=== PATIENT | female | born 1970 | race Caucasian/White ===

== ENCOUNTER 2021-11-03 15:00 | Outpatient (CLI) | payer OTHER ==
--- NOTE | 2021-11-05 12:07 | Mammography Report ---
BILATERAL DIGITAL SCREENING MAMMOGRAM 3D/2D: 11/03/2021 CLINICAL: Routine screening. Comparison is made to exams dated: 03/19/2015 mammogram, 02/26/2014 mammogram, 02/23/2013 mammogram, an d 12/08/2011 mammogram - [facility]. The tissue of both breasts is heterogeneously d ense. This may lower the sensitivity of mammography. No significant masses, calcifications, or other findings are seen in either breast. There has been no significant interval change. IMPRESSION: NEGATIVE There is no mammographic evidence of malignancy. A 1 year screening mammogram is recommended. This exam was interpreted at Station ID: [id number]. NOTE: For mammograms, a report in lay terms will be sent to the patient. Approximately 15% of breast malignancies will not be visualized mammographically. In the management of a palpable breast mass, a negative mammogram must not discourage biopsy of a clinically suspicious lesion. Electronically Signed By: aMnuel yang/penrad:11/04/2021 08:00:46 ACR BI-RADS Category 1: Negative 3341F PARENCHYMAL PATTERN: (D) - The breast(s) demonstrate(s) heterogeneously dense fibroglandular marimar elizondo. BI-RADS CATEGORY: (1) - 1 RECOMMENDATION: (ANNUAL) - Recommend routine annual screening mammography. [id number] 1 year screening LATERALITY: (B)
== END 2021-11-03 15:01 | disposition home or self-care (01) ==
LOC: DI.N 15:00
DX: Z12.31 Encounter for screening mammogram for malignant neoplasm of breast (principal)

== ENCOUNTER 2022-05-25 09:11 | Day surgery (SDC) | payer OTHER ==
[2022-05-25 09:42] LABS: BILIRUBIN,URINE NEGATIVE (NEGATIVE); GLUCOSE, URINE (UA) NEGATIVE (NEGATIVE); KETONES,URINE (UA) NEGATIVE (NEGATIVE); LEUKOCYTE ESTERASE, URINE NEGATIVE (NEGATIVE); NITRITE,URINE NEGATIVE (NEGATIVE); OCCULT BLOOD,URINE MODERATE (NEGATIVE); PROTEIN,URINE NEGATIVE (NEGATIVE); UROBILINOGEN,URINE 0.2 (NORMAL) E.U./dL (NORMAL)
[2022-05-25 09:51] LABS: BASOPHILS % (AUTO) 0.2 %; HCT - HEMATOCRIT 44.2 % (37.0-47.0); LYMPHOCYTES # (AUTO) 0.9 10^3/uL (1.5-3.5); LYMPHOCYTES % (AUTO) 4.6 %; MEAN CORPUSCULAR HEMOGLOBIN 25.3 pg (27.0-31.0); MEAN CORPUSCULAR HGB CONC 31.7 g/dL (32.0-36.0); MEAN CORPUSCULAR VOLUME 79.9 fL (81.0-99.0); MEAN PLATELET VOLUME 9.9 fL (7.9-10.8); MONOCYTES # (AUTO) 0.6 10^3/uL (0.0-1.0); NEUTROPHILS # (AUTO) 18.4 10^3/uL (1.5-6.6); NEUTROPHILS % (AUTO) 91.8 %; PLT - PLATELET COUNT 350 10^3/uL (130-450); RED BLOOD COUNT 5.53 10^6/uL (4.20-5.40); RED CELL DISTRIBUTION WIDTH 13.7 % (12.0-15.0)
[2022-05-25 09:55] LABS: CLARITY,URINE CLOUDY (CLEAR); HCG UR QUAL NEGATIVE
[2022-05-25 09:57] LABS: ALBUMIN 4.6 g/dL (3.2-5.5); ALBUMIN/GLOBULIN RATIO 1.3 (1.0-2.2); BILIRUBIN,TOTAL 0.5 mg/dL (0.2-1.0); CALCIUM 9.7 mg/dL (8.5-10.3); CREATININE 0.8 mg/dL (0.4-1.0); POTASSIUM 3.6 mmol/L (3.5-5.0); TOTAL PROTEIN 8.2 g/dL (6.7-8.2)
[2022-05-25 09:58] LABS: BACTERIA,URINE Few /HPF (None Seen); RBC,URINE 0-5 /HPF (0-5); SQUAMOUS EPITHELIAL CELL,UR FEW Squamous (<= Few); WBC,URINE 0-3 /HPF (0-5)
[2022-05-25] MEDS ORDERED: ONDANSETRON 4 MG/2 ML VIAL IVP STA (11:29)
[2022-05-25] MEDS ORDERED: fentaNYL 100 MCG/2 ML VIAL IVP PRN ×2 (11:29→17:50)
[2022-05-25] MEDS ORDERED: PANTOPRAZOLE 40 MG VIAL IVP STA (11:30)
[2022-05-25 11:32] LABS: MUDS CUTOFF CONCENTRATIONS CUTOFF CONC BELOW:
[2022-05-25 11:43] LABS: AMPHETAMINE SCREEN,URINE NEGATIVE (NEGATIVE); BARBITURATE SCREEN,UR NEGATIVE (NEGATIVE); BENZODIAZEPINES SCREEN, URINE NEGATIVE (NEGATIVE); COCAINE SCREEN URINE NEGATIVE (NEGATIVE); METHADONE SCREEN, URINE NEGATIVE (NEGATIVE); METHAMPHETAMINES SCREEN, URINE NEGATIVE (NEGATIVE); OPIATE SCREEN, URINE NEGATIVE (NEGATIVE); OXYCODONE SCREEN, URINE NEGATIVE (NEGATIVE); PROPOXYPHENE SCREEN, URINE NEGATIVE (NEGATIVE); THC CANNABINOID SCREEN, URINE NEGATIVE (NEGATIVE); TRICYCLIC ANTIDEPRESSANT,URINE NEGATIVE (NEGATIVE)
[2022-05-25] MEDS ORDERED: PIPERACILLIN/TAZOBACTAM 4.5 GM in SODIUM CHLORIDE 0.9% MINIBAG 100 ML IV STA (14:20)
--- NOTE | 2022-05-25 14:21 | CT Report ---
PROCEDURE: Abdomen/Pelvis W INDICATIONS: abd pain CONTRAST: IV CONTRAST: Optiray 320 ml: 100 PO CONTRAST: *NO PO CONTRAST TECHNIQUE: After the administration of IV contrast, 5 mm thick sections acquired from the diaphragms to the symp hysis. 5 mm thick coronal and sagittal reformats were acquired. For radiation dose reduction, the f ollowing was used: automated exposure control, adjustment of mA and/or kV according to patient size. COMPARISON: None. FINDINGS: Image quality: Excellent. ABDOMEN: Lung bases: Lung bases are clear. Heart size is normal. Solid organs: Liver and spleen are normal in size and enhancement. Gallbladder is normal without wa ll thickening or calcification. Biliary system is non dilated. Pancreas enhances normally. No adre nal nodules. Kidneys demonstrate normal size and enhancement, without hydronephrosis. Peritoneum and bowel: The appendix is medially located along the right pelvic sidewall. It is fluid- filled, distended at 1.0 cm, and demonstrates mild wall hyperemia. There are mild inflammatory change s in the region of the appendiceal origin. Bowel loops otherwise demonstrate normal wall thickness an d caliber. No free fluid or air. Nodes and vessels: No retroperitoneal or mesenteric adenopathy by size criteria. Aorta and inferior vena cava are normal in size. Miscellaneous: No ventral hernias. PELVIS: Genitourinary: Bladder wall thickness is normal. There is an IUD in the uterus. Uterus and ovaries d emonstrate normal morphology. Miscellaneous: No inguinal hernias or adenopathy. Bones: No suspicious bony lesions. No vertebral body compression fractures. IMPRESSION: 1. Findings suggestive of early acute appendicitis. No evidence of abscess or rupture. 2. Findings discussed with Dr. Lucia in the emergency room at 1417 hours. Reviewed by: Anyi Meyer MD on 05/25/2022 2:20 PM PDT Approved by: Anyi Meyer MD on 05/25/2022 2:20 PM PDT Station ID: [id number]
--- NOTE | 2022-05-25 15:17 | ED Physician Documentation ---
History of Present Illness - Stated complaint Stated Complaint: ABD PX/VOMITING - Chief complaint Chief Complaint: Abd Pain - Additonal information Additional information: Patient is 51-year-old female presenting to the emergency department with abdominal pain with associated nausea and vomiting. Reports epigastric, right upper and right lower quadrant abdominal pain that began yesterday. Multiple episodes of nonbloody nonbilious vomiting associated with this event. Denies previous episodes of pain in the past. Denies history GERD, peptic ulcer disease, alcohol abuse, excessive NSAID use. Past surgical history positive for 1 section. Denies fever, chills, chest pain, shortness of breath, recent travel, new rash, new weakness/numbness/tingling in any extremity. Review of Systems Ten Systems: 10 systems reviewed and negative Constitutional: denies: Fever Cardiac: denies: Chest pain / pressure Respiratory: denies: Dyspnea GI: reports: Abdominal Pain, Nausea, Vomiting. denies: Diarrhea PD PAST MEDICAL HISTORY - Allergies Allergies/Adverse Reactions: Allergies Allergy/AdvReac Type Severity Reaction Status Date / Time No Known Drug Allergies Allergy Verified 05/25/22 09:19 PD ED PE NORMAL - Vitals Vital signs reviewed: Yes - General General: Alert and oriented X 3, No acute distress - HEENT HEENT: Atraumatic, PERRL, EOMI, Ears normal - Neck Neck: Supple, no meningeal sign, No bony TTP, No adenopathy - Cardiac Cardiac: RRR, No gallop - Respiratory Respiratory: No respiratory distress - Abdomen Abdomen: Other (Periumbilical and epigastric abdominal pain. No guarding, rebound or rigidity.) Results - Vitals Vitals: Vital Signs - 24 hr 05/25/22 05/25/22 05/25/22 09:16 11:37 13:00 Temperature 36.5 C Heart Rate 74 61 66 Respiratory 22 16 12 Rate Blood Pressure 163/67 H 128/66 O2 Saturation 99 100 100 05/25/22 15:00 Temperature Heart Rate 70 Respiratory 14 Rate Blood Pressure 131/63 H O2 Saturation 100 Oxygen O2 Source Room air - Labs Labs: Laboratory Tests 05/25/22 05/25/22 05/25/22 09:26 09:26 09:35 WBC 20.0 H RBC 5.53 H Hgb 14.0 Hct 44.2 MCV 79.9 L MCH 25.3 L MCHC 31.7 L RDW 13.7 Plt Count 350 MPV 9.9 Neut # (Auto) 18.4 H Lymph # (Auto) 0.9 L Williams # (Auto) 0.6 Eos # (Auto) 0.0 Baso # (Auto) 0.0 Absolute Nucleated RBC 0.00 Nucleated RBC % 0.0 Sodium Potassium Chloride Carbon Dioxide Anion Gap BUN Creatinine Estimated GFR (MDRD) Glucose Calcium Total Bilirubin AST ALT Alkaline Phosphatase Total Protein Albumin Globulin Albumin/Globulin Ratio Lipase Urine Color YELLOW Urine Clarity CLOUDY Urine pH 6.0 Ur Specific G[place] 1.020 Urine Protein NEGATIVE Urine Glucose (UA) NEGATIVE Urine Ketones NEGATIVE Urine Occult Blood MODERATE H Urine Nitrite NEGATIVE Urine Bilirubin NEGATIVE Urine Urobilinogen 0.2 (NORMAL) Ur Leukocyte Esterase NEGATIVE Urine RBC 0-5 Urine WBC 0-3 Ur Squamous Epith Cells FEW Squamous Urine Bacteria Few Ur Microscopic Review INDICATED Urine Culture Comments NOT INDICATED Urine HCG, Qual NEGATIVE Urine Opiates Screen NEGATIVE Ur Oxycodone Screen NEGATIVE Urine Methadone Screen NEGATIVE Ur Propoxyphene Screen NEGATIVE Ur Barbiturates Screen NEGATIVE Ur Tricyclics Screen NEGATIVE Ur Phencyclidine Scrn NEGATIVE Ur Amphetamine Screen NEGATIVE U Methamphetamines Scrn NEGATIVE U Benzodiazepines Scrn NEGATIVE Urine Cocaine Screen NEGATIVE U Cannabinoids Screen NEGATIVE 05/25/22 09:35 WBC RBC Hgb Hct MCV MCH MCHC RDW Plt Count MPV Neut # (Auto) Lymph # (Auto) Williams # (Auto) Eos # (Auto) Baso # (Auto) Absolute Nucleated RBC Nucleated RBC % Sodium 136 Potassium 3.6 Chloride 100 L Carbon Dioxide 25 Anion Gap 11.0 BUN 17 Creatinine 0.8 Estimated GFR (MDRD) 76 L Glucose 148 H Calcium 9.7 Total Bilirubin 0.5 AST 31 ALT 46 Alkaline Phosphatase 95 Total Protein 8.2 Albumin 4.6 Globulin 3.6 Albumin/Globulin Ratio 1.3 Lipase 27 Urine Color Urine Clarity Urine pH Ur Specific Gerton Urine Protein Urine Glucose (UA) Urine Ketones Urine Occult Blood Urine Nitrite Urine Bilirubin Urine Urobilinogen Ur Leukocyte Esterase Urine RBC Urine WBC Ur Squamous Epith Cells Urine Bacteria Ur Microscopic Review Urine Culture Comments Urine HCG, Qual Urine Opiates Screen Ur Oxycodone Screen Urine Methadone Screen Ur Propoxyphene Screen Ur Barbiturates Screen Ur Tricyclics Screen Ur Phencyclidine Scrn Ur Amphetamine Screen U Methamphetamines Scrn U Benzodiazepines Scrn Urine Cocaine Screen U Cannabinoids Screen PD MEDICAL DECISION MAKING - ED course Complexity details: reviewed results, d/w patient, d/w real estate listing consultant ED course: Patient 51-year-old female presenting with 1 day history abdominal pain with associated nausea and vomiting. Afebrile, hemodynamic stable on arrival to the emergency department. Some periumbilical and epigastric abdominal pain. Labs obtained demonstrate significant leukocytosis. CT of the abdomen pelvis positive for acute appendicitis. Zosyn ordered. Additionally patient given fentanyl and Zofran for symptomatic management. Last p.o. intake was last night. Patient made n.p.o. in the emergency department. Discussed with the surgical service who graciously agreed to accept the patient. At this time she is awaiting transfer to same-day surgery. - Consults Consults: Consulted (name) (Dr. Kayden Santizo) Departure - Departure Disposition: ED Transfer to [facility] Clinical Impression: Appendicitis
[2022-05-25] MEDS ORDERED: ONDANSETRON 4 MG/2 ML VIAL IVP PRN ×2 (17:50→19:49)
[2022-05-25] MEDS ORDERED: ATROPINE ABBOJECT 1 MG/10 ML SYRINGE IVP PRN (17:50)
[2022-05-25] MEDS ORDERED: MORPHINE 2 MG/ML CARPUJECT IVP PRN (17:50)
[2022-05-25] MEDS ORDERED: HYDROmorphone 0.5 MG/0.5 ML SYRINGE IVP PRN ×2 (17:50→19:49)
[2022-05-25] MEDS ORDERED: ePHEDrine 50 MG/ML VIAL IVP PRN (17:50)
[2022-05-25] MEDS ORDERED: NALOXONE 0.4 MG/ML VIAL IVP PRN (17:50)
[2022-05-25] MEDS ORDERED: METOCLOPRAMIDE 10 MG/2 ML VIAL IVP PRN (17:50)
--- NOTE | 2022-05-25 17:50 | ANESTHESIA ---
Pre-Anesthesia VS, & Labs - Diagnosis acute appendicitis - Procedure lap appy Vital Signs: Temp Pulse Resp BP Pulse Ox O2 Flow Rate 36.5 C 70 13 126/67 100 05/25/22 09:16 05/25/22 17:00 05/25/22 17:00 05/25/22 17:00 05/25/22 17:00 Height: 5 ft 1 in Weight (kg): 58.513 kg Body Mass Index: 24.3 BMI Classification: Normal - NPO >8 hours - Is Patient ?: No - Lab Results Current Lab Results: Laboratory Tests 05/25/22 09:35: Sodium 136, Potassium 3.6, Chloride 100 L, Carbon Dioxide 25, Anion Gap 11.0, BUN 17, Creatinine 0.8, Estimated GFR (MDRD) 76 L, Glucose 148 H , Calcium 9.7, Total Bilirubin 0.5, AST 31, ALT 46, Alkaline Phosphatase 95, Total Protein 8.2, Albumin 4.6, Globulin 3.6, Albumin/Globulin Ratio 1.3, Lipase 27 05/25/22 09:35: WBC 20.0 H, RBC 5.53 H, Hgb 14.0, Hct 44.2, MCV 79.9 L, MCH 25.3 L, MCHC 31.7 L, RDW 13.7, Plt Count 350, MPV 9.9, Neut # (Auto) 18.4 H, Lymph # (Auto) 0.9 L, [place] # (Auto) 0.6, Eos # (Auto) 0.0, Baso # (Auto) 0.0, Absolute Nucleated RBC 0.00, Nucleated RBC % 0.0 05/25/22 09:26: Urine Opiates Screen NEGATIVE, Ur Oxycodone Screen NEGATIVE, Urine Methadone Screen NEGATIVE, Ur Propoxyphene Screen NEGATIVE, Ur Barbiturates Screen NEGATIVE, Ur Tricyclics Screen NEGATIVE, Ur Phencyclidine Scrn NEGATIVE, Ur Amphetamine Screen NEGATIVE, U Methamphetamines Scrn NEGATIVE, U Benzodiazepines Scrn NEGATIVE, Urine Cocaine Screen NEGATIVE, U Cannabinoids Screen NEGATIVE Fish Bones: 05/25/22 09:35 05/25/22 09:35 Home Medications and Allergies Active Medications Fentanyl (Fentanyl 100 Mcg/2 Ml Vial) 25 mcg IVP PRN PRN PRN Reason: PAIN Last Admin: 05/25/22 11:58 Dose: 25 mcg Allergies/Adverse Reactions: Allergies Allergy/AdvReac Type Severity Reaction Status Date / Time No Known Drug Allergies Allergy Verified 05/25/22 09:19 Anes History & Medical History - Anesthetic History Anesthesia Complications: reports: No previous complications Family history of Anesthesia Complications: Denies Family history of Malignant Hyperthermia: Denies - Medical History Cardiovascular: reports: Hypertension Pulmonary: reports: None Gastrointestinal: reports: None Urinary: reports: None Neuro: reports: None Musculoskeletal: reports: None Endocrine/Autoimmune: reports: HyPOthyroidism Blood Disorders: reports: None Skin: reports: None Psychosocial: reports: No issues indicated History of Cancer?: No Exam General: Alert, Oriented x3, Cooperative Dental: WNL Mouth Openin Fingerbreadth Neck Mobility: Normal Mallampati classification: II Thyromental Distance: 4-6 cm Respiratory: Lungs clear Cardiovascular: Regular rate Plan Anesthesia Type: General Consent for Procedure(s) Verified and Reviewed: Yes Code Status: Attempt Resuscitation ASA classification: 2-Mild systemic disease Is this case an emergency?: Yes
--- NOTE | 2022-05-25 17:56 | HISTORY & PHYSICAL EXAMINATION ---
Chief Complaint - Chief Complaint Chief Complaint: abdominal pain History of Present Illness - Admitted From Admitted From:: ed - History Obtained From Records Reviewed: yes History obtained from: pt Exam Limitations: none - History of Present Illness HPI Comment/Other: acute onset abdominal pain last night. getting worse and not feeling well work up in ED appendicitis. History - Past Medical History Cardiovascular: reports: Hypertension Respiratory: reports: None Neuro: reports: None Endocrine/Autoimmune: reports: HyPOthyroidism GI: reports: None : reports: None Musculoskeletal: reports: None Derm: reports: None Meds/Allgy - Allergies Allergies/Adverse Reactions: Allergies Allergy/AdvReac Type Severity Reaction Status Date / Time No Known Drug Allergies Allergy Verified 05/25/22 09:19 Review of Systems - Constitutional Constitutional: reports: Malaise, Poor appetite - Other Findings Other Findings: 10 pt ros as above otherwise unremarkable Exam - Vital Signs Vital Signs: Vital Signs x48h Pulse Resp BP Pulse Ox 05/25/22 17:00 70 13 126/67 100 05/25/22 15:00 70 14 131/63 H 100 05/25/22 13:00 66 12 128/66 100 05/25/22 11:37 61 16 100 - Physical Exam General Appearance: positive: Alert, Mild distress Eyes Bilateral: positive: PERRL, EOMI, No scleral icterus ENT: positive: No signs of dehydration Neck: positive: No JVD, Trachea midline Respiratory: positive: No respiratory distress, Breath sounds nml Cardiovascular: positive: Regular rate & rhythm Abdomen: positive: No distention, Other (right lower quadrant tenderness present) Neurologic/Psychiatric: positive: Oriented x3 Conclusion/Plan - Problem List (1) Appendicitis Conclusion/Plan: plan laparoscopic appendectomy. parq held and consent obtained - Lab Results Fish Bones: 05/25/22 09:35 05/25/22 09:35 - Diagnostic Imaging Results Diagnostic Imaging Results: positive: Read independently
[2022-05-25] MEDS ORDERED: LACTATED RINGERS 1,000 ML IV SCH (18:00)
[2022-05-25] MEDS ORDERED: PROPOFOL 200 MG/20 ML VIAL IVP ONE ×2 (18:22→19:55)
[2022-05-25] MEDS ORDERED: ONDANSETRON 4 MG/2 ML VIAL ONE (18:22)
[2022-05-25] MEDS ORDERED: DEXAMETHASONE 4 MG/ML VIAL ONE (18:22)
[2022-05-25] MEDS ORDERED: LIDOCAINE-MPF 2% 5 ML VIAL ONE (18:22)
[2022-05-25] MEDS ORDERED: fentaNYL 100 MCG/2 ML VIAL ONE ×2 (18:22→19:21)
[2022-05-25] MEDS ORDERED: KETOROLAC 30 MG/ML VIAL ONE (18:22)
[2022-05-25] MEDS ORDERED: MIDAZOLAM 2 MG/2 ML VIAL ONE (18:22)
[2022-05-25] MEDS ORDERED: ROCURONIUM 50 MG/5 ML VIAL ONE (18:22)
[2022-05-25] MEDS ORDERED: SUGAMMADEX 200 MG/2 ML VIAL IVP ONE (18:22)
[2022-05-25] MEDS ORDERED: BUPIVACAINE 0.25% PF 30 ML VIAL SUBQ ONE ×2 (18:51)
[2022-05-25] MEDS ORDERED: BUPIVACAINE 0.25% PF 10 ML VIAL ONE ×2 (18:53→18:59)
[2022-05-25] MEDS ORDERED: LIDOCAINE MPF 2%-EPI 1:200000 20 ML VIAL ONE (18:53)
[2022-05-25] MEDS ORDERED: BUPIVACAINE 0.5% PF 30 ML VIAL ONE (18:59)
[2022-05-25] MEDS ORDERED: LACTATED RINGERS 1,000 ML IV ONE (19:49)
--- NOTE | 2022-05-25 19:59 | OPERATIVE REPORT ---
Operative Report - General Procedure Date: 05/25/22 Planned Procedure: laparoscopic appendectomy Pre-Op Diagnosis: appendicitis Procedure Performed: lap appy Post Op Diagnosis: appendicitis - Procedure Note Primary Surgeon: sourav casey Anesthesia Technique: General ET tube, Local Pathology: appendix Estimated Blood Loss (mL): 10 Drain/Tube Type: Other (none) Indications: appendicitis Findings: suppurative Complications: none - Other Other Information/Narrative: The patient was properly identified brought to the operating room and placed in supine position. The patient was previously given antibiotics. Sequential compression devices were placed. General endotracheal anesthesia was induced. The patient was prepped and draped in a sterile fashion. Local anesthetic was given to incision areas. An infraumbilical incision was made in and proceeded down to the fascia. The fascia was incised lifted upwards and abdomen entered with a Veress needle. CO2 was insufflated to a pressure of 15. A 12 mm trocar was placed with 30 degree scope. There was no evidence of injury from Veress needle or trocar placement. Under direct vision a 5 mm trocar was placed suprapubic and a 5 mm trocar was placed in the right upper quadrant. Appendix was identified and retracted anteriorly. Peritoneal attachments were taken down with careful use of cautery. Appendix was mobilized more anterior. A plane was then created between the mesoappendix and the appendix at the cecum. Appendix was divided with an Endo CLEMENTE intestinal load to include up a small portion of the cecum. The mesoappendix was then divided with an Endo CLEMENTE vascular load. There was secure closure at the cecum and hemostasis was assured after an additional clip was placed at the staple line. The appendix was brought out. The abdomen was thoroughly irrigated and hemostasis again assured. Trochars were removed under direct vision. Fascia at the infraumbilical site was closed with a running 0 Vicryl suture. Subcutaneous tissue was irrigated and skin reapproximated with buried interrupted 4-0 Monocryl. Dressings were applied. The patient tolerated the procedure well was awakened and brought to recovery in good condition.
--- NOTE | 2022-05-25 20:20 | ANESTHESIA POST OP EVALUATION ---
Anesthesia Post Eval - Post Anesthesia Eval Vitals: Last Vital Signs Temp 37.9 C 05/25/22 20:10 Pulse 68 05/25/22 20:10 Resp 22 05/25/22 20:10 BP 122/61 05/25/22 20:10 Pulse Ox 100 05/25/22 20:10 O2 Flow Rate CV Function Including HR & BP: Stable Pain Control: Satisfactory Nausea & Vomiting: Negative Mental Status: Baseline Respiratory Status: Airway Patent Hydration Status: Satisfactory Anesthesia Complications: None
[2022-05-25] MEDS: PIPERACILLIN/TAZOBACTAM 3.375 GM in SODIUM CHLORIDE 0.9% MINIBAG 100 ML IV SCH (20:35)
[2022-05-25] MEDS: HYDROcod/ACETAM 5/325 MG TABLET PO PRN (21:34)
[2022-05-26] MEDS: PIPERACILLIN/TAZOBACTAM 3.375 GM in SODIUM CHLORIDE 0.9% MINIBAG 100 ML IV SCH ×2 (01:29→08:05)
[2022-05-26] MEDS: HYDROcod/ACETAM 5/325 MG TABLET PO PRN ×2 (01:35→06:46)
[2022-05-26 08:32] VITALS: BP 105/50
== END 2022-05-26 09:32 | disposition home or self-care (01) ==
LOC: ED 09:11 → SDS 17:45 → MS2 20:18 → SDS 05-26 09:32
PROVIDERS: ATTEND Surgery
PROC: 0DTJ4ZZ Resection of Appendix, Percutaneous Endoscopic Approach (ICD-10-PCS; principal; 2022-05-25 18:00)
DX: K35.80 Unspecified acute appendicitis (principal); I10 Essential (primary) hypertension; E03.9 Hypothyroidism, unspecified; Z32.02 Encounter for pregnancy test, result negative
CPT/HCPCS: 36415; 44970; 74177; 80053; 80306; 81001; 81025; 83690; 85025; 96374; 99283; 99285; A9270; J7120; Q9967; 81003; 87086